=== PATIENT | male | born 1960 | race Caucasian/White ===

== ENCOUNTER → 2016-08-31 | Outpatient (CLI) | payer OTHER ==
[~2016-08-31] MED LIST: AMLO5TAB2 PO; ESOM20CA PO; RAMI10CA PO
== END | disposition home or self-care (01) ==
LOC: CFH 08:04
PROVIDERS: ATTEND Nurse Practitioner
DX: Z12.2 Encounter for screening for malignant neoplasm of respiratory organs (principal); I25.10 Atherosclerotic heart disease of native coronary artery without angina pectoris; I65.23 Occlusion and stenosis of bilateral carotid arteries; J98.4 Other disorders of lung; F17.210 Nicotine dependence, cigarettes, uncomplicated
CPT/HCPCS: 93880; G0297

== ENCOUNTER 2017-03-24 10:06 | Emergency (ER) | payer OTHER ==
[~2017-03-24] VITALS: Ht 172.7 cm; Wt 92.8 kg
[2017-03-24] MEDS ORDERED: SODIUM CHLORIDE FLUSH 10ML SYR IVF ONE (11:00)
[2017-03-24] MEDS ORDERED: CLOPIDOGREL 75 MG TABLET PO ONE (11:00)
[2017-03-24] MEDS ORDERED: CLOPIDOGREL 75 MG TABLET ONE (11:19)
[2017-03-24 11:25] LABS: HEMATOCRIT 46.4 % (39.2-51.8); HEMOGLOBIN 15.9 g/dL (13.7-18.0); WHITE BLOOD COUNT 8.9 x10^3/uL (3.4-10)
[2017-03-24 11:36] LABS: ASPARTATE AMINO TRANSFERASE 21 U/L (15-37); BLOOD UREA NITROGEN 15 mg/dL (7-18)
[2017-03-24 11:42] LABS: IS PT STATUS REG ER OR PRE ER? YES
[2017-03-24] MEDS ORDERED: OMNIPAQUE 350 MG/ML, 100ML BOTTLE ONE (12:06)
[2017-03-24 13:02] VITALS: BP 118/85
== END 2017-03-24 14:14 | disposition home or self-care (01) ==
LOC: ED 11:44
DX: R07.89 Other chest pain (principal); I10 Essential (primary) hypertension; E11.9 Type 2 diabetes mellitus without complications; E78.5 Hyperlipidemia, unspecified; F17.200 Nicotine dependence, unspecified, uncomplicated
CPT/HCPCS: 36415; 71010; 71275; 80053; 83880; 84484; 85025; 85610; 85730; 93005; 99285; Q9967

== ENCOUNTER → 2020-09-01 | Outpatient (CLI) | payer MEDICARE ==
[~2020-09-01] MED LIST changes: +AMLO-150 PO; -AMLO5TAB2 PO; +OMNIPAQUE 350 MG/ML, 75ML BOTTLE ONE; -RAMI10CA PO; +RAMI10CA59 PO
== END | disposition home or self-care (01) ==
LOC: CFH 12:06
PROVIDERS: ATTEND Family Medicine
DX: J84.10 Pulmonary fibrosis, unspecified (principal); J44.9 Chronic obstructive pulmonary disease, unspecified
CPT/HCPCS: 71260; Q9967